=== PATIENT | female | born 1950 | race Caucasian/White ===

== ENCOUNTER 2018-09-13 14:23 | Emergency (ER) | payer MEDICARE ==
[~2018-09-13] VITALS: Ht 170.2 cm; Wt 75.0 kg
--- NOTE | 2018-09-13 14:50 | NUR ---
PT C/O DOUBLE VISION BEGINNING THIS AFTERNOON, SHE STATES CANNOT TELL IF IT IS IN BOTH EYES, SHE HAS LOSS OF VISION IN HER R EYE D/T MULTIPLE PROCEDURES AND HX OF 3 DETACHED RETINA. ERMD IN TO EVAL PT
[2018-09-13 15:11] LABS: BASOPHILS # (AUTO) 0.01 x10^3/uL (0-0.1); BASOPHILS % (AUTO) 0 % (0-1); EOSINOPHILS # (AUTO) 0.04 x10^3/uL (0-0.4); EOSINOPHILS % (AUTO) 1 % (1-7); LYMPHOCYTES # (AUTO) 1.06 x10^3/uL (1-3.4); LYMPHOCYTES % (AUTO) 16 % (22-44); MD NO; MEAN CORPUSCULAR HEMOGLOBIN 31.4 pg (27.0-34.8); MEAN CORPUSCULAR HGB CONC 32.7 g/dL (32.4-35.8); MEAN CORPUSCULAR VOLUME 96.1 fL (80-100); MEAN PLATELET VOLUME 8.5 fL (7.4-10.4); MONOCYTES # (AUTO) 0.35 x10^3/uL (0.2-0.8); MONOCYTES % (AUTO) 5 % (2-9); NEUTROPHILS # (AUTO) 5.17 x10^3/uL (1.8-6.8); NEUTROPHILS % (AUTO) 78 % (42-75); PLATELET COUNT 176 x10^3/uL (130-400); RED BLOOD COUNT 4.42 x10^6/uL (3.82-5.3); RED CELL DISTRIBUTION WIDTH 12.8 % (9.6-15.2)
[2018-09-13 15:18] LABS: ALBUMIN 4.4 g/dL (3.4-5.0); ANION GAP 9 mmol/L (5-15); CALCIUM 9.5 mg/dL (8.5-10.1); CHLORIDE 108 mmol/L (98-107)
--- NOTE | 2018-09-13 15:49 | NUR ---
NEEDS IV FOR CTA
--- NOTE | 2018-09-13 16:15 | NUR ---
PIV STARTED, PT TAKEN TO CT
[2018-09-13] MEDS ORDERED: OMNIPAQUE 350 MG/ML, 100ML BOTTLE ONE (16:44)
--- NOTE | 2018-09-13 17:05 | NUR ---
PT BACK FROM CT, RESTING IN CHAIR, WITH PT, NO NEEDS AT THIS TIME, NAD
[2018-09-13 17:32] VITALS: BP 176/82
== END 2018-09-13 17:33 | disposition home or self-care (01) ==
LOC: ED 17:21
DX: H53.2 Diplopia (principal)
CPT/HCPCS: 36415; 70450; 70496; 70498; 80048; 82040; 82962; 85025; 93005; 99284; Q9967